=== PATIENT | female | born 1970 | race Caucasian/White ===

== ENCOUNTER 2017-01-16 21:40 | Emergency (ER) | payer OTHER ==
[~2017-01-16] VITALS: Ht 162.6 cm; Wt 65.9 kg
[2017-01-16 21:46] VITALS: TEMP 98.4
[2017-01-16] MEDS ORDERED: CELEXA40 MG PO (21:50)
[2017-01-16] MEDS ORDERED: TOPROL XL 25MG25 MG PO (21:50)
[2017-01-16] MEDS ORDERED: SINGULAIR 110 MG/TAB PO (21:51)
[2017-01-16 22:28] LABS: HYALINE CAST >12 /lpf; PH 5 (5-8); URINE APPEARANCE Cloudy; URINE BACTERIA Rare /hpf; URINE BILIRUBIN Positive (NEGATIVE); URINE BLOOD Negative (NEGATIVE); URINE COLOR Amber; URINE GLUCOSE Negative (NEGATIVE); URINE KETONE Trace (NEGATIVE)
[2017-01-16 22:32] LABS: BASO # 0.1 (0.0-0.2); BASO % 0.4 % (0.0-2.0); EOS # 0.1 (0.0-0.7); EOS % 0.5 % (0-4.0); GRAN # 8.8 (1.4-6.5); GRAN % 71.7 % (42.2-75.2); HEMATOCRIT 38.9 % (37.0-47.0); HEMOGLOBIN 12.9 g/dl (12.5-16.0); LYMPH # 2.5 (1.2-3.4); LYMPH % 20.7 % (20.0-51.0); MEAN CELL VOLUME 95 fl (80.0-100.0); MEAN CORPUSCULAR HEMOGLOBIN 32 pg (27.0-31.0); MEAN CORPUSCULAR HGB CONC 33 g/dl (33.0-37.0); MEAN PLATELET VOLUME 9.9 fl (7.4-10.4); MONO # 0.8 (0.1-0.6); MONO % 6.3 % (1.7-9.3); PLATELET COUNT 254 K/mm3 (130-400); RED BLOOD COUNT 4.08 M/mm3 (4.10-5.30); WHITE BLOOD COUNT 12.3 K/mm3 (4.8-10.8)
[2017-01-16 22:44] LABS: ADJUSTED CALCIUM 9.2 mg/dL (8.4-10.2); ALBUMIN 4.4 gm/dL (3.5-5.0); CALCIUM 9.5 mg/dL (8.4-10.2); CREATININE, serum 1.02 mg/dL (0.52-1.25); POTASSIUM 3.6 mmol/L (3.4-5.0); TOTAL PROTEIN 7.6 gm/dL (6.4-8.2)
[2017-01-16 23:34] VITALS: BP 115/55; PULSE 81
== END 2017-01-16 23:35 | disposition home or self-care (01) ==
LOC: COL.ER 21:40
PROVIDERS: Family Medicine
DX: E86.0 Dehydration (principal); R55 Syncope and collapse; E11.9 Type 2 diabetes mellitus without complications; R11.2 Nausea with vomiting, unspecified
CPT/HCPCS: J2405; J7030

== ENCOUNTER → 2017-04-09 | Outpatient (REF) ==
[~2017-04-09] MED LIST: CELEXA40 MG PO; SINGULAIR 110 MG/TAB PO; TOPROL XL 25MG25 MG PO
== END ==
LOC: WSOH 07:59
DX: Z02.89 Encounter for other administrative examinations (principal)

== ENCOUNTER → 2017-08-02 | Outpatient (CLI) | payer OTHER | LOC: COL.RAD 11:05 | DX: M48.061 Spinal stenosis, lumbar region without neurogenic claudication (principal); M47.816 Spondylosis without myelopathy or radiculopathy, lumbar region; M51.36 Other intervertebral disc degeneration, lumbar region; R20.2 Paresthesia of skin; F17.210 Nicotine dependence, cigarettes, uncomplicated; Z90.49 Acquired absence of other specified parts of digestive tract ==

== ENCOUNTER 2020-09-20 06:21 | Day surgery (SDC) | payer OTHER ==
[~2020-09-20] VITALS: Ht 162.6 cm; Wt 60.9 kg
[~2020-09-20 06:21] MED LIST changes: +EFFEXOR-XR150 MG PO; +TOPROL XL50 MG PO
[2020-09-20] MEDS ORDERED: PRIL40 PO (06:49)
[2020-09-20] MEDS ORDERED: CHANTIX 1MG1 MG PO (06:49)
[2020-09-20 06:52] VITALS: BP 123/53; PULSE 103; TEMP 98.4
[2020-09-20 08:00] VITALS: BP 100/66; PULSE 95; TEMP 98.5
--- NOTE | 2020-09-20 08:00 | NUR ---
Pt to [facility] via cart from [place]. Pt drowsy, but awake. Pt denies pain or nausea. Pt ambulates to recliner with stand by assist. Warm blankets provided. Muffin and water provided per pt request. Will continue to monitor. Call light within reach.
[2020-09-20 08:15] VITALS: BP 101/65; PULSE 96
--- NOTE | 2020-09-20 08:15 | NUR ---
Pt continues to rest. Pt tolerating po food and fluids without diffiuclties. More water provided per request. Will continue to monitor. Call light within reach.
[2020-09-20 08:30] VITALS: BP 102/70; PULSE 86
--- NOTE | 2020-09-20 08:30 | NUR ---
Pt continues to rest. into see pt. Will continue to monitor. Call light within reach.
--- NOTE | 2020-09-20 08:40 | NUR ---
Discharge instructions reviewed. Pt voices understanding. IV site discontinued with all parts intact. Pt up to dress. Call light within reach.
[2020-09-20 08:46] VITALS: BP 89/56; PULSE 85
--- NOTE | 2020-09-20 08:50 | NUR ---
Pt escorted to private car via wheel chair. Pt accompanied home by her daughter.
== END 2020-09-20 08:50 | disposition home or self-care (01) ==
LOC: SDCO 06:21
DX: K57.30 Diverticulosis of large intestine without perforation or abscess without bleeding (principal); R11.2 Nausea with vomiting, unspecified; R10.11 Right upper quadrant pain; R93.3 Abnormal findings on diagnostic imaging of other parts of digestive tract; R19.7 Diarrhea, unspecified; K21.9 Gastro-esophageal reflux disease without esophagitis; F32.9 Major depressive disorder, single episode, unspecified; Z20.822 Contact with and (suspected) exposure to COVID-19; Z87.891 Personal history of nicotine dependence
CPT/HCPCS: J2704; J7030

== ENCOUNTER 2021-06-24 06:26 | Day surgery (SDC) | payer OTHER ==
[~2021-06-24] VITALS: Ht 162.6 cm; Wt 66.8 kg
[2021-06-24] VITALS (7 sets, daily range): BP systolic 95–117; BP diastolic 54–72; PULSE 58–95; TEMP 97.3–97.7
[~2021-06-24 06:26] MED LIST changes: +CHANTIX 1MG1 MG PO; +PRIL40 PO
[2021-06-24] MEDS ORDERED: ULTRAM 50MG TAB50 MG PO (06:47)
[2021-06-24] MEDS ORDERED: COLACE 100100 MG/CAP PO (06:47)
[2021-06-24] MEDS ORDERED: BENEFIBER PO (06:48)
[2021-06-24] MEDS ORDERED: MOTRIN 600600 MG/TAB PO (11:17)
[2021-06-24] MEDS ORDERED: NORCO 325 MG-51 TAB PO (11:18)
[2021-06-24] MEDS ORDERED: Work Release (12:37)
--- NOTE | 2021-06-24 13:00 | NUR ---
WENT THROUGH DISCHARGE INSTRUCTIONS WITH PATIENT AND , QUESTIONS ANSWERED. Patient requesting note for work. Notified Dr. Beasley who printed out note and then RN gave note to patient. IV removed with no complications. Patient got dressed and went to restroom and was able to void. Escorted patient via wheelchair to patient entrance. Patients got the car, patient left in the care of her , Sathish.
--- NOTE | 2021-06-24 13:28 | NUR ---
1138: Patient arrived back to [facility] following PACU, report recieved from EDUARDO Garibay who received report from [employer] REFERRAL CLERK. Patient doing well. Resting with eyes closed, opens to voice. at bedside. 1153: Patient doing well, requesting apple juice. Tolerated well, no complaint of nausea. Reporting mild pain, pain medications given per NOV. 1208: Patient states she is doing okay, denies nausea, patient requesting blueberry muffin. 1238: Patient reports doing well, no complaint of pain or nausea.
== END 2021-06-24 13:10 | disposition home or self-care (01) ==
LOC: SDCO 06:26
DX: N99.4 Postprocedural pelvic peritoneal adhesions (principal); R10.11 Right upper quadrant pain; K21.9 Gastro-esophageal reflux disease without esophagitis; J45.909 Unspecified asthma, uncomplicated; F32.9 Major depressive disorder, single episode, unspecified; F41.9 Anxiety disorder, unspecified; Z20.822 Contact with and (suspected) exposure to COVID-19; Z79.899 Other long term (current) drug therapy; Z90.49 Acquired absence of other specified parts of digestive tract; Z90.710 Acquired absence of both cervix and uterus
CPT/HCPCS: J0690; J1100; J2250; J2405; J2704; J3010; J7120

== ENCOUNTER → 2021-09-01 | Outpatient (CLI) | payer OTHER ==
[~2021-09-01] MED LIST changes: +BENEFIBER PO; +COLACE 100100 MG/CAP PO; +MOTRIN 600600 MG/TAB PO; +NORCO 325 MG-51 TAB PO; +ULTRAM 50MG TAB50 MG PO; +Work Release
== END ==
LOC: COL.RAD 07:45
DX: M51.24 Other intervertebral disc displacement, thoracic region (principal); M47.812 Spondylosis without myelopathy or radiculopathy, cervical region